=== PATIENT | male | born 1955 | race Hispanic/Latino ===

== ENCOUNTER 2019-06-20 08:49 | Emergency (ER) | payer OTHER ==
[~2019-06-20] VITALS: Ht 182.9 cm; Wt 77.1 kg
--- NOTE | 2019-06-20 08:56 | NUR ---
DR REYES BEDSIDE AT THIS TIME
[2019-06-20] MEDS ORDERED: KETOROLAC TROMETHAMINE 60 MG/2 ML VIAL IM ONE (09:00)
--- NOTE | 2019-06-20 09:27 | Diagnostic Imaging Report ---
Right rib series, 4 views Clinical indication: Fall, pain Comparison: None Findings: There are acute minimally displaced fractures of right eighth, ninth, and 10th ribs. There is no pneumothorax. The heart is within normal limits of size. There is no focal dilatation or pleural effusion. Impression: Acute minimally displaced fractures of the right 8th, 9th, and 10th ribs. Signed by: Alex Jerry MD on 06/20/2019 9:24 AM
[2019-06-20 10:04] VITALS: BP 124/91
== END 2019-06-20 10:00 | disposition home or self-care (01) ==
LOC: ER 08:49
DX: S22.41XA Multiple fractures of ribs, right side, initial encounter for closed fracture (principal); W01.198A Fall on same level from slipping, tripping and stumbling with subsequent striking against other object, initial encounter; Y92.008 Other place in unspecified non-institutional (private) residence as the place of occurrence of the external cause; F17.210 Nicotine dependence, cigarettes, uncomplicated
CPT/HCPCS: 71101; 94760; 99283; J1885